=== PATIENT | female | born 1995 | race Caucasian/White ===

== ENCOUNTER 2021-10-05 17:31 | Emergency (ER) | payer OTHER ==
[~2021-10-05] VITALS: Ht 167.6 cm; Wt 59.0 kg
[2021-10-05] MEDS ORDERED: NAPROXEN500 MG PO (18:55)
== END 2021-10-05 19:20 | disposition home or self-care (01) ==
LOC: ER 17:31
DX: N83.291 Other ovarian cyst, right side (principal); R10.2 Pelvic and perineal pain

== ENCOUNTER 2022-05-27 17:41 | Emergency (ER) | payer OTHER ==
[~2022-05-27] VITALS: Ht 167.6 cm; Wt 63.5 kg
[~2022-05-27 17:41] MED LIST: NAPROXEN500 MG PO
== END 2022-05-27 22:01 | disposition home or self-care (01) ==
LOC: ER 17:41
DX: M54.50 Low back pain, unspecified (principal); R10.2 Pelvic and perineal pain

== ENCOUNTER 2022-08-20 14:54 | Emergency (ER) | payer OTHER ==
[~2022-08-20] VITALS: Ht 167.6 cm; Wt 59.0 kg
== END 2022-08-20 20:49 | disposition home or self-care (01) ==
LOC: ER 14:54
DX: R10.2 Pelvic and perineal pain (principal); K81.9 Cholecystitis, unspecified